=== PATIENT | male | born 2000 | race Caucasian/White ===

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

== ENCOUNTER 2020-02-05 09:00 | Day surgery (SDC) | payer OTHER ==
[2020-02-05] MEDS ORDERED: Ringers Lactate 1,000 ML IV ONE (09:22)
[2020-02-05 09:49] LABS: BUN Blood Urea Nitrogen 16 mg/dL (7-18); Bicarbonate 32 mmol/L (21-32); Glucose Level 86 mg/dL (74-106); Sodium Level 141 mmol/L (136-145)
[2020-02-05 09:51] VITALS: O2SAT 100
[2020-02-05 09:56] LABS: Absolute Lymphocytes (CBC) 1.6 K/uL (0.7-4.9); Basophils % 0.6 % (0-1.3); Hematocrit 48.4 % (39.6-49.0); Lymphocytes % 30.7 % (15.3-44.8); MPV 8.9 fL (7.6-11.3); RBC Red Blood Cell Count 5.36 M/uL (4.33-5.43)
--- OUTSIDE RECORDS SUMMARY | 2020-02-05 10:04 | XMS REPORT | Continuity of Care Document ---
:[address] [facility] t Address [address] [place] [address] [address] [place] [address] Care Team Providers Name Role Phone Fran Primary Care Physician [facility] [employer]IC [employer]ALE [employer]SEM[employer]ER [employer] TESTER Attending Clinician Pob[facility], Care Clinic Attending Clinician Unavailable Sabina CONTRERAS ETatyana Attending Clinician Payers Payer Name Policy Type Policy Effective Date Expiration Date Sour ce Number AETNAAETNA [id number] 2004 [place] HMO,POS,EPO, 00:00:00 [place] MADHAV/[id number]/ 03/2004-[facility] O Problems Condition Condition Condition Status Onset Resolution Last Treating Co mments Source Name Details Category Date Date Treatment Clinician Date 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 Family History Family Member Diagnosis Comments Start Date Stop Date Source Natural father No Known Problems Abdelrahman Ramirez Natural mother No Known Problems Abdelrahman Ramirez Social History Social Habit Start Date Stop Date Quantity Comments Source Sex Assigned At [facility] ethodist Tobacco use and 2019-07-13 2019-07-13 Never used Marcus Ferrell ethodist exposure 00:00:00 00:00:00 Alcohol intake 2019-07-13 2019-07-13 Current Marcus Celeste thodist 00:00:00 00:00:00 non-drinker of alcohol (finding) Smoking Status Start Date Stop Date Source Never smoker Marcus Pastoris t Medications Ordered Filled Start Stop Current Ordering Indication Dosage Frequency Signature Comments Components Source Medication Medication Date Date Medication? Clinician (SIG) Name Name naproxen 2015-03 Yes Marcus (EC 2-09 Methodi NAPROSYN) 00:00: st 500 MG EC 00 tablet loratadine Yes 10mg QD Take 10 mg [place] (CLARITIN) 8-01 by mouth Metho di 10 mg 08:31: daily. st tablet 24 mometasone Yes 220ug QD Inhale 220 [place] (ASMANEX 8-01 mcg daily. Metho di TWISTHALER) 08:31: st 220 mcg 24 (120 doses) aerosol powdr breath activated lisdexamfet Yes 20mg QD Take 20 mg Velazquez amine 8-01 by mouth Methodi (VYVANSE) 08:31: every st 20 MG 24 morning. capsule Vital Signs Vital Name Observation Time Observation Value Comments Source Body height 2019-07-13 10:23:00 185.4 cm Marcus Ramirez Body weight 2019-07-13 10:23:00 92.987 kg Marcus Ramirez BMI 2019-07-13 10:23:00 27.05 kg/m2 Marcus Ramirez Procedures Procedure Date / Time Performed Performing Clinician Sourc e XR CALCANEUS 2+ VW LEFT 2019-07-13 10:27:21 Abhijit Muhammad Plan of Care Planned Activity Planned Date Details Comments Source Future Scheduled 2019-10-07 INFLUENZA VACCINE [place] Test 00:00:00 [code = INFLUENZA VACCINE] Encounters Start End Encounter Admission Attending Care Care Encounter Source Date/Time Date/Time Type Type Clinicians Facility Department ID 2019-09-20 2019-09-20 Telephone JUAN CARLOS Jensen [id number] 00:00:00 00:00:00 Rhea BASS [id number] [facility] [id number] 2019-09-17 2019-09-17 Urgent Pob1, Acute [facility] [id number] 13:01:12 13:21:12 [place] [id number] [place] [id number] Melanie [id number] [address] [address] 2019-07-13 2019-07-13 Outpatient [facility] [id number] [place] 00:00:00 00:00:00 , ABHIJIT [address] 2019-07-13 2019-07-13 Outpatient [facility] [id number] [place] 00:00:00 00:00:00 , ABHIJIT [address] Results This patient has no known results.
--- OUTSIDE RECORDS SUMMARY | 2020-02-05 10:04 | XMS REPORT | Clinical Summary ---
:2000 Author Organization [facility] Address [address] [place] [address] Care Team Providers Name Role Phone Latesha Peters Primary Care Provider Allergies No Known Active Allergies Medications Medication Sig Dispensed Refills Start Date End Date Status loratadine (CLARITIN) 10 Take 10 mg by 0 Active mg tablet mouth daily. mometasone (ASMANEX Inhale 220 mcg 0 Active TWISTHALER) 220 mcg (120 daily. doses) aerosol powdr breath activated lisdexamfetamine Take 20 mg by 0 Active (VYVANSE) 20 MG capsule mouth every morning. 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 Peroneal tendonitis of right lower extremity 6 Encounters Date Type Specialty Care Team Description 07/13/2019 Office Visit Orthopedic Surgery Abhijit Muhammad Chr onic heel pain, left MD Edith (Primary Dx) 07/13/2019 Travel 07/04/2019 Travel after 02/04/2019 Surgical History Surgery Date Site/Laterality Comments MS OSTEOTOMY HEEL BONE 08/20/2015 Foot/Right Procedure : CALCANEUS Ankle/Right OSTEOTOMY, PERON EUS LONGUS TO BREVIS TRANSFER, PLANTAR FASCIA RELEASE, 1ST TMT FUSION; Surgeon : Abhijit Muhammad MD, MD; Location: [facility] OP [facility] 19 OR; Service: Orthope dics Medical devices from this surgery are in t he Implants section. MS REPAIR BOTH COLLAT ANKL 08/20/2015 Foot/Right Proce dure: ANKLE LIGAMENT LIGMT,PRIMRY Ankle/Right RECONSTRUCTION; Surgeon: Abhijit mcdermott MD, MD; Location: [facility] OP [facility] 19 OR; Service: Orthope dics Medical devices from this surgery are in t he Implants section. Medical History Medical History Date Comments Asthma Family History Medical History Relation Name Comments No Known Problems Father No Known Problems Mother Relation Name Status Comments Father Mother Social History Tobacco Use Types Packs/Day Years Used Date Never Smoker Smokeless Tobacco: Never Used Alcohol Use Drinks/Week oz/Week Comments No Sex Assigned at Date Recorded Not on file Last Filed Vital Signs Vital Sign Reading Time Taken Comments Blood Pressure - - Pulse - - Temperature - - Respiratory Rate - - Oxygen Saturation - - Inhaled Oxygen Concentration - - Weight 93 kg (205 lb) 07/13/2019 10:23 AM CDT Height 185.4 cm (6' 1") 07/13/2019 10:23 AM CDT Body Mass Index 27.05 07/13/2019 10:23 AM CDT Plan of Treatment Health Maintenance Due Date Last Done Comments INFLUENZA VACCINE 10/07/2019 Implants Implanted Type Area Metal Mixer Device Shelf Model / Identifier Expiration Serial / Date Lot Screw Bone Canc Canltd Lag [id number] - [id number] Orthopedic Right: [id number] / Implanted: 08/20/2015 at [facility] (Quantity not on file) Tra amelie Ankle ORTHO-HIPS / Implants Screw Bone Canc Canltd Lag Reduc Head 4x38mm Ns Timax - [id number] Orthopedic Right: [id number] / Implanted: 08/20/2015 at [facility] (Quantity not on file) Trauma Ankle / Implants Screw Bone Canc Canltd Lag Reduc Head 4x46mm Ns Timax - [id number] Orthopedic Right: [id number] / Implanted: 08/20/2015 at [facility] (Quantity not on file) Trauma Ankle / Implants [place] Suture Ti-Screw Maxbraid Es Sz 2 3mm Tit W/Needle - [id number] Soft Tissue Right: [employer] 12/19/2019 [id number] / Implanted: Qty: 2 on 08/20/2015 by Abhijit Muhammad MD at [facility] Fixation Ankle MEDICINE / [place] Suture Ti-Screw Maxbraid Es Sz 2 3mm Tit W/Needle - [id number] Soft Tissue Right: [employer] 12/19/2019 [id number] / Implanted: Qty: 1 on 08/20/2015 by Abhijit Muhammad MD at [facility] Fixation Ankle MEDICINE / Wire K 1.6mm 6in - [id number] Temporary Right: [id number] / Implanted: 08/20/2015 at [facility] (Quantity not on file) Fix ation Pin Ankle / or Wire Procedures Procedure Name Priority Date/Time Associated Diagnosis Comme nts XR CALCANEUS 2+ VW Routine 07/13/2019 10:27 AM Chronic heel pa in, Results for this LEFT CDT left procedure are i n the results section. after 02/04/2019 Results XR Calcaneus 2+ Vw Left (07/13/2019 10:27 AM CDT) Specimen Narrative Performed At This result has an attachment that is no t available. 2 views of the left heel, in weightbearing fashion, shows no acute osseous [facility] abnormalities. There is a cavus foot alignment. Th ere is a small insertional Achilles spur with a Kathleen's deformity. 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
[2020-02-05] MEDS ORDERED: METHYLENE BLUE 0.5% 10 ML AMP ONE (10:35)
[2020-02-05] MEDS ORDERED: ROCURONIUM 50 MG/5 ML VIAL IV ONE ×2 (10:56)
[2020-02-05] MEDS ORDERED: ONDANSETRON 4 MG/2 ML VIAL ONE (10:56)
[2020-02-05] MEDS: CEFAZOLIN/SWI 1gm 1 GM/10 ML SYR ONE ×2 (10:56→11:10)
[2020-02-05] MEDS ORDERED: LIDOCAINE 2% MPF 5 ML VIAL ONE (10:56)
[2020-02-05] MEDS ORDERED: propofoL 200 MG/20 ML VIAL IV ONE (10:56)
[2020-02-05] MEDS ORDERED: FENTANYL CITR 100 MCG/2 ML ONE (10:56)
[2020-02-05] MEDS ORDERED: dexAMETHasone 10 MG/ML VIAL ONE (10:56)
[2020-02-05] MEDS: BUPIVACAINE 0.5% Inj,MDV 50 mL VIAL ONE ×3 (10:57→11:34)
[2020-02-05] MEDS ORDERED: MIDAZOLAM HCL 2 MG/2 ML INJ ONE (11:00)
[2020-02-05] MEDS ORDERED: Mastisol Adhesive Liq ONE (11:01)
[2020-02-05] MEDS ORDERED: KETOROLAC 30 MG/ML INJ ONE (11:49)
--- NOTE | 2020-02-05 11:49 | P.BOP ---
Preoperative diagnosis: infected pilonidal cyst Postoperative diagnosis: same Primary procedure: Wide excision of infected pilonidal cyst Estimated blood loss: <10cc Specimen: infected pilonidal cyst Findings: infected pilonidal cyst Anesthesia: General Complications: None Transferred to: Recovery Room Condition: Good
[2020-02-05] MEDS ORDERED: NEOSTIGMINE 1 MG/ML -5 ML ONE (11:53)
[2020-02-05] MEDS ORDERED: GLYCOPYRROLATE 0.2 MG/ML SYR ONE (11:53)
--- NOTE | 2020-02-05 12:34 | OP ---
Date of Procedure: 02/05/2020 Surgeon: Jagjit Jessica MD Preoperative Diagnosis: Infected pilonidal cyst. Postoperative Diagnosis: Infected pilonidal cyst. Procedure: Wide excision of infected pilonidal cyst. Specimen: Infected pilonidal cyst. Anesthesia: General plus local. Ebl: Less than 10 mL. Indication: This is a 19-year-old patient who comes to us with infected pilonidal cyst. He has been on antibiotics for a week already, now wanted it completely excised. He is due to go in the [facility] soon and they will not let him go with the pilonidal cyst, so he wants that excised. The benefits, alternatives, and risks of excision fully explained to the patient which include, but not limited to infection, bleeding, damage to adjacent structures, anesthesia complication, nonhealing wound requir ing packing, PA and even . He also understands this may not relieve symptoms. He might need mo re than one surgical intervention. He fully understands the importance of making plans ahead. We ca nnot guarantee that he will be able to be ready by March, although by doing him so early, he is inc reasing the chance of being able to put this behind him. If he wanted me to close this area, if poss ible, but if even we close the area, we do not see in the next few days, he is improving. We might h ave to close by secondary intention and packing. That once again may interfere with his plans in Mar. He signed a consent. Area of concern was marked by the patient. Procedure In Detail: The patient was brought to the operating room, placed in supine position. Anes thesia was done without complication. The patient was placed in prone position with proper protectio n. Sacral and buttock area were prepped and draped in sterile fashion. A time-out was called. Loca l anesthesia was applied. We placed an Angiocath through one of the openings and put some blue dye o terra the area. This allowed us to delineate the area of the cyst. We made a wedge incision all the w ay down to deep near the coccyx while that blue was present. Area was profusely irrigated. Hemostas is was obtained. We did not see any pus at this moment, so I proceeded to go with his plans and tryi ng to close the area. So, after profuse irrigation and local anesthetic, we proceeded to place 0 chr omic in deep and then a suture mattress fashion 2-0 nylon to close the area. The patient tolerated t he procedure well. Area was covered with sterile dressings. The patient was sent to Recovery in sta ble condition. Diagnosis: Infected pilonidal cyst. Procedure: Wide excision of infected pilonidal cyst. Disposition: Home. Activity: As tolerated. No lifting. Apply Bactroban over the area 4 times a day and after every aaliyah wel movement since it is an area that the gauze come off easily. Avoid trauma. We are going to cont inue the Cipro p.o. and follow the patient in 1 week. DAVID/ДМИТРИЙ Voice ID: [id number] Report ID: [id number]
[2020-02-05 13:01] VITALS: BP 147/64; TEMP 96.8
== END 2020-02-05 13:15 | disposition home or self-care (01) ==
LOC: OR 09:00
PROVIDERS: ATTEND Surgery
PROC: 0JB90ZZ Excision of Buttock Subcutaneous Tissue and Fascia, Open Approach (ICD-10-PCS; principal; 2020-02-05 10:30)
DX: L05.91 Pilonidal cyst without abscess (principal)
CPT/HCPCS: 85025; 80048; 36415; 88304; 11771; J2704; J2250; J3010; J1100; J2710; J0690; J7120; J2405